=== PATIENT | male | born 1955 | race American Indian/Alaskan Native ===

== ENCOUNTER 2017-07-06 14:11 | Emergency (ER) | payer MEDICARE, OTHER ==
--- NOTE | 2017-07-06 14:30 | EDM.PDOC ---
ED HPI GENERAL MEDICAL PROBLEM - General Chief Complaint: Respiratory Problem Stated Complaint: [id number] O2 SENT FROM CLINIC Time Seen by Provider: 07/06/17 14:24 Source of Information: Reports: Patient History Limitations: Reports: No Limitations, Respiratory Distress - History of Present Illness INITIAL COMMENTS - FREE TEXT/NARRATIVE: Patient presents to ER with c/o increasing SOB. He states he is on oxygen at home, and has become more sob since Thursday. He denies fever or chills, nausea , vomiting, or chest pain. He states he has had some diarrhea over the past few days. Onset: Gradual Onset Date: 07/04/17 - Related Data Allergies Allergy/AdvReac Type Severity Reaction Status Date / Time No Known Allergies Allergy Verified 07/06/17 14:33 Home Meds: Home Meds Ferrous Sulfate 325 mg PO TID 07/06/17 [History] Furosemide 80 mg PO BID 07/06/17 [History] Insulin Detemir [Levemir] 8 unit SQ DAILY 07/06/17 [History] Insulin Lispro [Humalog] 10 unit SQ TID 07/06/17 [History] Ipratropium/Albuterol Sulfate [Combivent Respimat Inhal M[place]] 4 gm IH TID 07/06 [History] Isosorbide Mononitrate [Isosorbide Mononitrate ER] 60 mg PO BID 07/06/17 [ History] Levothyroxine 150 mcg PO ACBREAKFAST 07/06/17 [History] Meclizine [Antivert] 25 mg PO TID PRN 07/06/17 [History] Metolazone 2.5 mg PO DAILY 07/06/17 [History] Metronidazole [IJD: metroNIDAZOLE] 500 mg PO TID 07/06/17 [History] Multivitamin with Minerals [Multiple Vitamin] 2 tab PO BID 07/06/17 [History] Pregabalin [Lyrica] 300 mg PO BID 07/06/17 [History] amLODIPine [Norvasc] 10 mg PO BEDTIME 07/06/17 [History] oxyCODONE HCl/Acetaminophen [oxyCODONE-Acetaminophen 5-325] 1 tab PO Q4H PRN 06/14 [History] Social & Family History - Tobacco Use Smoking Status *Q: Former Smoker Used Tobacco, but Quit: Yes Month Tobacco Last Used: 168 - Caffeine Use Caffeine Use: Reports: Coffee - Recreational Drug Use Recreational Drug Use: Yes Recreational Drug Type: Reports: Marijuana/Hashish Recreational Drug Use Frequency: Weekly ED ROS GENERAL - Review of Systems Review Of Systems: ROS reveals no pertinent complaints other than HPI. ED EXAM, GENERAL - Physical Exam Exam: See Below Exam Limited By: No Limitations General Appearance: Alert, WD/WN, Moderate Distress Ears: Normal External Exam, Hearing Grossly Normal Nose: Normal Inspection Throat/Mouth: Normal Inspection, Normal Lips, Normal Teeth, Normal Gums, Normal Voice, No Airway Compromise Head: Atraumatic, Normocephalic Neck: Normal Inspection, Supple, Non-Tender, Full Range of Motion Respiratory/Chest: No Respiratory Distress, Normal Breath Sounds, No Accessory Muscle Use, Chest Non-Tender, Decreased Breath Sounds, Crackles, Wheezing Cardiovascular: Normal Peripheral Pulses, Regular Rate, Rhythm, No Edema, No Gallop, No JVD, No Rub, Systolic Murmur GI/Abdominal: Normal Bowel Sounds, Soft, Non-Tender (Male) Exam: Deferred Rectal (Males) Exam: Deferred Back Exam: Normal Inspection, Full Range of Motion Extremities: Normal Inspection, Normal Range of Motion, Non-Tender, No Pedal Edema, Normal Capillary Refill, Other (wearing boot on left foot, states he recieved antibiotics per a PICC line for surgical amputation of toes) Neurological: Alert, Oriented, Normal Cognition, No Motor/Sensory Deficits Psychiatric: Normal Affect, Normal Mood Skin Exam: Warm, Dry, Intact, Normal Color, No Rash Lymphatic: No Adenopathy EKG INTERPRETATION EKG Date: 07/06/17 Time: 15:15 Rhythm: NSR Rate (Beats/Min): 77 P-Wave: Present QRS: Normal ST-T: Normal QT: Prolonged Comparison: NA - No Prior EKG Course - Vital Signs Last Recorded V/S: Last Vital Signs Temp 98.0 F 07/06/17 14:28 Pulse 81 07/06/17 14:28 Resp 20 07/06/17 14:28 BP 134/64 07/06/17 14:28 Pulse Ox 64 L 07/06/17 15:41 - Orders/Labs/Meds Orders: Active Orders 24 hr Category Date Time Status EKG Documentation Completion [RC] STAT Care 07/06/17 15:11 Active [place], Stool [OCCULT BLOOD DIAGNOSTIC] [OP] Stat Lab 07/06/17 15:23 Ordered Labs: Laboratory Tests 07/06/17 07/06/17 07/06/17 Range/Units 14:28 14:36 14:36 WBC 10.5 H (5.0-10.0) 10^3/uL RBC 2.69 L (4.6-6.2) 10^6/uL Hgb 7.5 L (14.0-18.0) g/dL Hct 24.8 L (40.0-54.0) % MCV 92.2 (80-100) fL MCH 27.9 (27.0-34.0) pg MCHC 30.2 L (33.0-35.0) g/dL Plt Count 280 (150-450) 10^3/uL Neut % (Auto) 66.5 (42.2-75.2) % Lymph % (Auto) 23.8 (20.5-50.1) % Hunt % (Auto) 7.1 (2-8) % Eos % (Auto) 2.3 (1.0-3.0) % Baso % (Auto) 0.3 (0.0-1.0) % ABG pH 7.32 L (7.35-7.45) ABG pCO2 42 (35-45) mmHg ABG pO2 58 L (70-100) mmHg ABG HCO3 20.8 L (22-26) mmol/L ABG O2 Saturation 84 L (95-100) % ABG Base Excess -4 L ((-2)-(+3)) mmol/L Derek Test na O2 Delivery Device Nasal cannula Oxygen Flow Rate 4 Sodium 141 (135-145) mmol/L Potassium 4.8 (3.6-5.0) mmol/L Chloride 107 (101-111) mmol/L Carbon Dioxide 21.0 (21.0-31.0) mmol/L Anion Gap 17.8 BUN 79 H (7-18) mg/dL Creatinine 3.6 H (0.6-1.3) mg/dL Est Cr Clr Drug Dosing TNP Estimated GFR (MDRD) 17 BUN/Creatinine Ratio 21.94 Glucose 264 H (74-105) mg/dL Calcium 7.9 L (8.4-10.2) mg/dl Total Bilirubin 0.3 (0.2-1.0) mg/dL AST 18 (10-42) IU/L ALT 14 (10-60) IU/L Alkaline Phosphatase 68 (42-121) IU/L Troponin I 0.06 H* (0.00-0.02) ng/ml B-Natriuretic Peptide (0-100) pg/ml Total Protein 6.9 (6.7-8.2) g/dl Albumin 2.3 L (3.2-5.5) g/dl Globulin 4.6 Albumin/Globulin Ratio 0.50 07/06/17 Range/Units 14:36 WBC (5.0-10.0) 10^3/uL RBC (4.6-6.2) 10^6/uL Hgb (14.0-18.0) g/dL Hct (40.0-54.0) % MCV (80-100) fL MCH (27.0-34.0) pg MCHC (33.0-35.0) g/dL Plt Count (150-450) 10^3/uL Neut % (Auto) (42.2-75.2) % Lymph % (Auto) (20.5-50.1) % Hunt % (Auto) (2-8) % Eos % (Auto) (1.0-3.0) % Baso % (Auto) (0.0-1.0) % ABG pH (7.35-7.45) ABG pCO2 (35-45) mmHg ABG pO2 (70-100) mmHg ABG HCO3 (22-26) mmol/L ABG O2 Saturation (95-100) % ABG Base Excess ((-2)-(+3)) mmol/L Derek Test O2 Delivery Device Oxygen Flow Rate Sodium (135-145) mmol/L Potassium (3.6-5.0) mmol/L Chloride (101-111) mmol/L Carbon Dioxide (21.0-31.0) mmol/L Anion Gap BUN (7-18) mg/dL Creatinine (0.6-1.3) mg/dL Est Cr Clr Drug Dosing Estimated GFR (MDRD) BUN/Creatinine Ratio Glucose (74-105) mg/dL Calcium (8.4-10.2) mg/dl Total Bilirubin (0.2-1.0) mg/dL AST (10-42) IU/L ALT (10-60) IU/L Alkaline Phosphatase (42-121) IU/L Troponin I (0.00-0.02) ng/ml B-Natriuretic Peptide 3460 H (0-100) pg/ml Total Protein (6.7-8.2) g/dl Albumin (3.2-5.5) g/dl Globulin Albumin/Globulin Ratio Meds: Medications Discontinued Medications Generic Name Dose Route Start Last Admin Trade Name Alan PRN Reason Stop Dose Admin Furosemide 40 mg 07/06/17 15:22 07/06/17 15:34 Lasix IVPUSH 07/06/17 15:23 40 mg NOW ONE Administration - Radiology Interpretation Free Text/Narrative:: chest xray: Moderate interstitial pulmonary edema. LEFT upper love and bilateral lower lobe alveolar air space disease suggesting alveolar edema versus atelectasis versus pneumonia. See rad report Departure - Departure Time of Disposition: 16:00 Disposition: DC/Tfer to Acute Hospital 02 Condition: Fair Clinical Impression: Congestive heart failure Qualifiers: Congestive heart failure type: unspecified congestive heart failure type Congestive heart failure chronicity: acute Qualified Code(s): I50.9 - Heart failure, unspecified - Discharge Information Forms: ED Department Discharge, Interfacility Transfer EMTALA - My Orders Last 24 Hours: My Active Orders 07/06/17 15:11 EKG Documentation Completion [RC] STAT 07/06/17 15:23 [place], Stool [OCCULT BLOOD DIAGNOSTIC] [OP] Stat - Assessment/Plan Last 24 Hours: My Active Orders 07/06/17 15:11 EKG Documentation Completion [RC] STAT 07/06/17 15:23 [place], Stool [OCCULT BLOOD DIAGNOSTIC] [OP] Stat
[2017-07-06 14:31] VITALS: BP 134/64
[2017-07-06 14:47] LABS: BASE EXCESS ARTERIAL -4 mmol/L ((-2)-(+3)); BICARBONATE,ARTERIAL 20.8 mmol/L (22-26); O2 DELIVERY DEVICE NASAL CANNULA; O2 SATURATION ARTERIAL 84 % (95-100); PCO2 ARTERIAL 42 mmHg (35-45); PO2 ARTERIAL 58 mmHg (70-100)
[2017-07-06 14:50] LABS: O2 FLOW RATE 4
[2017-07-06 15:04] LABS: CHLORIDE,CL 107 mmol/L (101-111); SODIUM,NA 141 mmol/L (135-145)
[2017-07-06] MEDS ORDERED: Furosemide 40 MG/4 ML VIAL IVPUSH ONE (15:22)
--- NOTE | 2017-07-09 09:28 | EKG ---
07/06/2017- EMERALD JACOBSEN - A 12-lead EKG shows normal sinus rhythm with heart rate of 77. No significant ST elevation or ST depression noted on this 12-lead EKG. Nonspecific ST-T wave changes noted on lead V2 and V3. [facility] /[id number]
== END 2017-07-06 16:46 ==
LOC: DL.ED 14:11
DX: I50.9 Heart failure, unspecified (principal); Z87.891 Personal history of nicotine dependence; Z79.899 Other long term (current) drug therapy; Z79.4 Long term (current) use of insulin; Z99.81 Dependence on supplemental oxygen
CPT/HCPCS: 36415; 36600; 71010; 80053; 82272; 82803; 83880; 84484; 85025; 93005; 93010; 96374; 99285; J1940; 99284